=== PATIENT | female | born 1985 | race Caucasian/White ===

== ENCOUNTER 2017-02-07 23:44 | Emergency (ER) | payer OTHER ==
[~2017-02-07] VITALS: Ht 167.6 cm; Wt 70.3 kg
[2017-02-07 23:54] VITALS: BP 128/89
--- NOTE | 2017-02-07 23:56 | NUR ---
TO ER BED 7
[2017-02-08] MEDS ORDERED: PHENAZOPYRIDINE 100 MG TAB PO ONE (00:05)
[2017-02-08] MEDS ORDERED: HYDROcodone/APAP 5/325 MG 1 TAB TAB PO ONE (00:05)
[2017-02-08] MEDS ORDERED: KETOROLAC 30 MG/ML VIAL IM ONE (00:05)
--- NOTE | 2017-02-08 00:05 | NUR ---
Patient being evaluated by physician at bedside.
--- NOTE | 2017-02-08 00:05 | NUR ---
PATIENT PRESENTS TO ED WITH LOWER ABD PAIN, AND PAINFUL URINATION SINCE 2099HOURS . PT DENIES N/V/D; SKIN IS PINK/WARM/DRY; AAOX4 WITH EVEN AND STEADY GAIT; LUNGS CLEAR BL; HR EVEN AND REGULAR; PT DENIES ANY FEVER, CP, SOB, OR COUGH AT THIS TIME; PATIENT STATES PAIN OF 8/10 AT THIS TIME; VSS; PATIENT POSITIONED FOR COMFORT; HOB ELEVATED; BEDRAILS UP X2; BED DOWN. ER MD MADE AWARE OF PT STATUS.
[2017-02-08 00:22] LABS: APPEARANCE,URINE CLEAR (CLEAR); BILIRUBIN,URINE NEGATIVE (NEGATIVE); BLOOD, URINE 3+ (NEGATIVE); COLOR,URINE YELLOW (YELLOW); LEUKOCYTE ESTERASE ,URINE 2+ (NEGATIVE); NITRITE, URINE NEGATIVE (NEGATIVE); PH,URINE 5.5 (5.0-9.0); PROTEIN,URINE NEGATIVE (NEGATIVE); UGLUCOSE NEGATIVE (NEGATIVE); UROBILINOGEN,URINE 0.2 EU/dL (0.2 - 1)
[2017-02-08 00:33] LABS: BACTERIA,URINE 1+ /HPF (None Seen); RBC,URINE 3-10 (FEW) /HPF (0-5); WBC,URINE TOO MANY TO COUNT /HPF (0-5)
--- NOTE | 2017-02-08 00:46 | NUR ---
Patient discharged with v/s stable. Written and verbal after care instructions given and explained. Patient alert, oriented and verbalized understanding of instructions. Ambulatory with steady gait. All questions addressed prior to discharge. ID band removed. Patient advised to follow up with PMD. Rx of CIPRO 250MG, NAPROSYN 500MG, NORCO 5/325, PYRIDIUM 100MG given. Patient educated on indication of medication including possible reaction and side effects. Opportunity to ask questions provided and answered.
[2017-02-08 00:47] VITALS: BP 119/80
== END 2017-02-08 00:47 | disposition home or self-care (01) ==
LOC: MED 23:44
DX: N39.0 Urinary tract infection, site not specified (principal); Z98.890 Other specified postprocedural states
CPT/HCPCS: 81001; 81025; 87086; 96372; 99284; J1885; 87186